=== PATIENT | male | born 1990 | race Caucasian/White ===

== ENCOUNTER 2022-01-11 12:07 | Emergency (ER) | payer OTHER ==
[~2022-01-11] VITALS: Ht 177.8 cm; Wt 86.3 kg
[2022-01-11 12:09] VITALS: BP 129/82
[2022-01-11] MEDS ORDERED: ALBUTEROL 90 MCG/ACT 8GM HFA INHALER INH ONE (16:35)
[2022-01-11] MEDS ORDERED: ALBU6.7H6 INH (17:01)
== END 2022-01-11 17:24 | disposition home or self-care (01) ==
LOC: M ED 12:07
DX: J20.9 Acute bronchitis, unspecified (principal); B34.9 Viral infection, unspecified; J06.9 Acute upper respiratory infection, unspecified; F17.220 Nicotine dependence, chewing tobacco, uncomplicated